=== PATIENT | female | born 1960 | race Caucasian/White ===

== ENCOUNTER 2017-01-17 15:12 | Outpatient (CLI) | payer OTHER ==
--- NOTE | 2017-01-17 15:42 | DIAGNOSTIC IMAGING REPORT ---
PROCEDURE: XR CHEST 2 VIEW INDICATION: ACUTE BRONCHITIS TECHNIQUE: PA and lateral views. COMPARISON: Chest 02/25/2014 FINDINGS: Lungs are clear. Heart and mediastinum are normal. Thorax is normal. IMPRESSION: 1. Negative chest.
== END 2017-01-17 23:00 ==
LOC: XR SRH 15:12
DX: J20.9 Acute bronchitis, unspecified (principal)